=== PATIENT | female | born 1945 | race Caucasian/White ===

== ENCOUNTER → 2016-06-14 | Outpatient (CLI) | payer OTHER ==
--- NOTE | 2016-06-14 12:13 | DX ---
Chest, PA and Lateral History: Follow-up sarcoid, chronic cough Comparison: June 29, 2015 Findings: Bilateral hilar adenopathy is stable as is subtle interstitial nodularity in the right lung , greatest in the right upper lobe. There is no new infiltrate or consolidation. Heart size is normal . There is no mediastinal adenopathy or pulmonary mass lesion. There is no pleural effusion. Bones ar e unremarkable for age. Impression: Stable x1 year.
== END ==
LOC: CIMAGING 10:56
PROVIDERS: ATTEND Family Medicine
DX: R05 Cough (principal); Z87.09 Personal history of other diseases of the respiratory system
CPT/HCPCS: 71020-PO

== ENCOUNTER → 2016-09-12 | Outpatient (CLI) | payer OTHER | LOC: CIMAGING 13:52 | PROVIDERS: ATTEND Family Medicine | DX: M11.261 Other chondrocalcinosis, right knee (principal); M11.262 Other chondrocalcinosis, left knee; M25.861 Other specified joint disorders, right knee; M25.862 Other specified joint disorders, left knee; M22.41 Chondromalacia patellae, right knee | CPT/HCPCS: 73562-PO ==

== ENCOUNTER → 2018-03-06 | Outpatient (CLI) | payer OTHER | LOC: CIMAGING 11:01 | PROVIDERS: ATTEND Family Medicine | DX: Z12.31 Encounter for screening mammogram for malignant neoplasm of breast (principal) ==

== ENCOUNTER → 2018-08-13 | Outpatient (CLI) | payer OTHER, MEDICARE | LOC: CIMAGING 10:04 | PROVIDERS: ATTEND Family Medicine | DX: E04.1 Nontoxic single thyroid nodule (principal) | CPT/HCPCS: 76536-PO ==

== ENCOUNTER → 2018-09-12 | Outpatient (CLI) | payer OTHER, MEDICARE ==
[~2018-09-12] MED LIST: LIDOCAINE 1% 300 MG/30 ML SDV ONE
== END ==
LOC: FIMAGING 07:48
PROVIDERS: ATTEND Internal Medicine
PROC: 0GBG3ZX Excision of Left Thyroid Gland Lobe, Percutaneous Approach, Diagnostic (ICD-10-PCS; principal; 2018-09-12)
DX: E04.1 Nontoxic single thyroid nodule (principal)